=== PATIENT | female | born 1960 | race Caucasian/White ===

== ENCOUNTER 2023-09-25 12:15 | Emergency (ER) | payer MEDICAID ==
[~2023-09-25] VITALS: Ht 177.8 cm; Wt 75.2 kg
[~2023-09-25 12:15] MED LIST: ALLEGRA-D 24 H1 EACH PO; APPLE CIDER VI300 MG PO; B COMPLETE1 EACH PO; CYMBALTA60 MG PO; FLAX SEED OIL1000 MG PO; GABAPENTIN300 MG PO; IRON325 M1 PO; L-METHYLFOLATE15 M1 PO; MELOXICAM15 MG PO; MOTRIN IB200 MG PO; NEXIUM40 MG PO; NORCO 5-325 TA1 EACH PO; OMEGA 3 1,0001 EACH PO; PERCOCET 5-3251 EACH PO; SERTRALINE HCL50 MG PO; SUPERVITE EC CAP1 MG; VENLAFAXINE HC100 MG PO
[2023-09-25 12:36] LABS: BILIRUBIN, URINE NEGATIVE (negative); BLOOD/HGB, URINE NEGATIVE (Negative); KETONE, URINE NEGATIVE (Negative); LEUK ESTERASE, URINE MODERATE (negative); NITRITE, URINE POSITIVE (negative); PH, URINE 7.5 (5-7)
[2023-09-25 12:41] LABS: EPITHELIAL CELLS, URINE SQUAMOUS 2+ /lpf (0-1+)
[2023-09-25 12:42] LABS: BACTERIA, URINE 2+ /hpf (negative); CASTS, URINE NONE SEEN \\lpf; COLLECTION TYPE, URINE CLEAN CATCH; CRYSTALS, URINE NONE SEEN (0-1+); RED BLOOD CELLS, URINE 0-1 /hpf (0-5); REFLEX CULTURE, URINE No (No); WHITE BLOOD CELLS, URINE 41-50 /HPF (0-5)
[2023-09-25] MEDS ORDERED: CEPHALEXIN500 MG PO (12:54)
[2023-09-25 13:06] VITALS: BP 116/69
== END 2023-09-25 13:07 | disposition home or self-care (01) ==
LOC: ED 12:15
PROVIDERS: Emergency Medicine
DX: N39.0 Urinary tract infection, site not specified (principal); K21.9 Gastro-esophageal reflux disease without esophagitis; Z79.899 Other long term (current) drug therapy; Z88.2 Allergy status to sulfonamides; Z88.5 Allergy status to narcotic agent
CPT/HCPCS: 81001; 99283

== ENCOUNTER 2024-04-28 05:38 | Emergency (ER) | payer MEDICARE, OTHER ==
[~2024-04-28] VITALS: Ht 177.8 cm; Wt 68.5 kg
[~2024-04-28 05:38] MED LIST changes: +CEPHALEXIN500 MG PO
[2024-04-28] MEDS ORDERED: OMEPRAZOLE20 MG PO (05:50)
[2024-04-28] MEDS ORDERED: ondansetron HCL 4 MG/2 ML VIAL IV ONE (06:00)
[2024-04-28] MEDS ORDERED: HYDROmorphone HCL 1 MG/ML SYR IV PRN (06:00)
[2024-04-28] MEDS ORDERED: TRAMADOL HCL50 MG PO (07:57)
[2024-04-28] MEDS ORDERED: TRAMADOL HCL 50 MG TAB PO ONE (08:15)
[2024-04-28] MEDS ORDERED: ACETAMINOPHEN 500 MG TAB PO ONE (08:15)
[2024-04-28 08:28] VITALS: BP 120/75
== END 2024-04-28 08:28 | disposition home or self-care (01) ==
LOC: ED 05:38
DX: S52.612A Displaced fracture of left ulna styloid process, initial encounter for closed fracture (principal); S52.572A Other intraarticular fracture of lower end of left radius, initial encounter for closed fracture; S00.12XA Contusion of left eyelid and periocular area, initial encounter; K21.9 Gastro-esophageal reflux disease without esophagitis; Z88.2 Allergy status to sulfonamides; Z88.5 Allergy status to narcotic agent; Z79.899 Other long term (current) drug therapy; W10.9XXA Fall (on) (from) unspecified stairs and steps, initial encounter
CPT/HCPCS: 29125; 70450; 70486; 71046; 72125; 73110; 73130; 99284-25; A9270; J1171; J2405

== ENCOUNTER 2024-12-22 21:04 | Emergency (ER) | payer MEDICARE, OTHER ==
[~2024-12-22] VITALS: Ht 177.8 cm; Wt 64.0 kg
[~2024-12-22 21:04] MED LIST changes: +OMEPRAZOLE20 MG PO; +TRAMADOL HCL50 MG PO
[2024-12-22] MEDS ORDERED: TRAMADOL HCL 50 MG TAB PO ONE (21:30)
[2024-12-22] MEDS ORDERED: ACETAMINOPHEN 500 MG TAB PO ONE (21:30)
[2024-12-22] MEDS ORDERED: TRAMADOL HCL50 MG PO (21:54)
[2024-12-22] MEDS ORDERED: TRAMADOL HCL 50 MG HOME.PACK PO ONE (22:00)
[2024-12-22 22:37] VITALS: BP 148/83
== END 2024-12-22 22:30 | disposition home or self-care (01) ==
LOC: ED 21:04
DX: S52.592A Other fractures of lower end of left radius, initial encounter for closed fracture (principal); S52.615A Nondisplaced fracture of left ulna styloid process, initial encounter for closed fracture; K21.9 Gastro-esophageal reflux disease without esophagitis; Z88.2 Allergy status to sulfonamides; Z88.5 Allergy status to narcotic agent; Z79.899 Other long term (current) drug therapy; W18.30XA Fall on same level, unspecified, initial encounter
CPT/HCPCS: 73110; 99283; A9270

== ENCOUNTER 2025-01-03 11:01 | Day surgery (SDC) | payer OTHER, MEDICARE ==
[~2025-01-03] VITALS: Ht 177.8 cm; Wt 61.3 kg
[~2025-01-03 11:01] MED LIST changes: +CEFAZOLIN SODIUM 2 GM in SODIUM CHLORIDE 0.9% 100 ML IV SCH; +IBLOOD GLUCOSE TEST STRIP 1 EA TEST VI PRN; +LACTATED RINGER'S 1,000 ML IV SCH; +LIDOCAINE HCL 1% 5 ML SDV INJ ONE
[2025-01-03] MEDS ORDERED: DEXAMETHASONE SOD PHOS 10 MG/ML VIAL ONE (11:11)
[2025-01-03] MEDS ORDERED: LIDOCAINE HCL 2% 5 ML SDV ONE ×2 (11:15→11:56)
[2025-01-03] MEDS ORDERED: SEVOFLURANE 250 ML BTL INH ONE (11:20)
[2025-01-03 11:26] VITALS: BP 130/72
[2025-01-03 11:42] LABS: BASOPHILS 0.9 % (0.1-1.2); EOSINOPHILS 2.0 % (0.7-5.8); LYMPHOCYTES 25.6 % (19.3-51.7); MCH 34.7 PG (25.6-32.2); MCHC 35.1 g/dL (32.2-35.5); MCV 98.9 fL (79.4-94.8); MONOCYTES 10.3 % (4.7-12.5); NEUTROPHILS 61.0 % (34.0-71.1); RBC 4.35 M/uL (3.93-5.22)
[2025-01-03] MEDS ORDERED: OXYCODONE HCL5 M3 PO (11:56)
[2025-01-03] MEDS ORDERED: MULTIVITAMIN1 EACH PO (11:57)
[2025-01-03] MEDS ORDERED: VITAMIN C500 M1 PO (11:57)
[2025-01-03] MEDS ORDERED: VITAMIN B121000 MCG PO (11:57)
[2025-01-03] MEDS ORDERED: TURMERIC500 M3 PO (11:58)
[2025-01-03] MEDS ORDERED: OMEGA 3 FISH O1 EACH PO (11:58)
[2025-01-03 12:01] LABS: ALT (SGPT) 25.0 U/L (14-59); AST (SGOT) 22.0 U/L (15-37); GLOMERULAR FILTRATION RATE,EST 102.0 mL/min (>60); PROTEIN, TOTAL 7.4 g/dL (6.4-8.2); UREA NITROGEN 12.0 mg/dL (7-18)
[2025-01-03] MEDS ORDERED: ACETAMINOPHEN 1,000 MG/100 ML VIAL ONE (12:55)
[2025-01-03] MEDS ORDERED: KETOROLAC TROMETHAMINE 30 MG/ML VIAL ONE (13:03)
[2025-01-03] MEDS ORDERED: fentaNYL citrate 100 MCG/2 ML VIAL ONE (13:03)
[2025-01-03] MEDS ORDERED: Ropivacaine HCl 0.5% 30 ML VIAL ONE (13:05)
[2025-01-03] MEDS ORDERED: SODIUM CHLORIDE 0.9% 20 ML IV ONE (13:05)
[2025-01-03] MEDS ORDERED: HYDROCODONE/ACETA 7.5/325 TAB PO PRN (13:30)
[2025-01-03] MEDS ORDERED: HYDROCODON-ACE1 EA11 PO (13:31)
[2025-01-03] MEDS ORDERED: LACTATED RINGER'S 1,000 ML IV ONE (13:33)
--- NOTE | 2025-01-03 13:41 | NUR ---
01/03/25 1341 Marie Forde 1336: PT ARRIVES TO PACU AWAKE, BUT DROWSY. REPORT RECEIVED FROM [employer] REPORT ANALYST AND [employer]TERY [employer]GER CONVEYOR LINE.
[2025-01-03 14:20] VITALS: BP 134/78
--- NOTE | 2025-01-03 14:52 | NUR ---
1420: PATIENT BACK IN DAY SURGERY ROOM FROM PACU. RATES PAIN 8/10 IN LEFT WRIST. VS CHECKED. IV SITE WNL. SCDs ON. LEFT WRIST ELEVATED ON PILLOWS. ICE PACK TO LEFT WRIST. LEFT FINGERS WARM. CAP REFILL LESS THAN 3 SECONDS TO LEFT FINGERS. LEFT FINGERS PINK. UNABLE TO ASSESS LEFT RADIAL PULSE. GIVEN ICE WATER AND CRACKERS. FRIEND AT BEDSIDE. CALL LIGHT WITHIN REACH. 1435: PATIENT TOLERATING WATER AND CRACKERS. GIVEN NORCO FOR PAIN. CALL LIGHT WITHIN REACH.
--- NOTE | 2025-01-03 15:15 | NUR ---
1500: CHECKED PATIENT. PATIENT STATES DOING WELL. NO NEEDS AT THIS TIME. FRIEND LEFT TO GO FILLING [employer]IC PRESCRIPTION. CALL LIGHT WITHIN REACH.
[2025-01-03 15:27] VITALS: BP 114/62
--- NOTE | 2025-01-03 15:31 | NUR ---
VS CHECKED. PATIENT STATES PAIN IMPROVING. CAP REFILL TO LEFT FINGERS WNL. LEFT FINGERS WARM AND PINK. PATIENT WATCHING MOVIE ON PHONE. SCDs ON. IV SITE WNL. CALL LIGHT WITHIN REACH.
[2025-01-03 17:05] VITALS: BP 112/70
--- NOTE | 2025-01-03 17:11 | NUR ---
1620: PATIENT ASSISTED OOB AND TO BATHROOM. VOID WITHOUT DIFFICULTY. GAIT STEADY TO AND FROM BATHROOM. PATIENT ASSISTED TO GET DRESSED. LEFT ARM IN SLING. 1700: DISCHARGE INSTRUCTIONS GIVEN TO PATIENT AND FRIEND.
--- NOTE | 2025-01-03 17:23 | NUR ---
1710: IV DC'D WNL. TIP INTACT. DRESSING APPLIED. VS CHECKED. LEFT FINGERS NUMB. LEFT FINGERS PINK AND WARM. CAP REFILL TO LEFT FINGERS WNL. PATIENT DISCHARGED TO HOME WITH FRIEND VIA WHEELCHAIR.
--- NOTE | 2025-01-07 06:46 | OR ---
[facility] [address], [place] [address] Signed DATE OF OPERATION: 01/03/2025 SURGEON: Janice Joshua MD PREOPERATIVE DIAGNOSIS: Displaced left distal radius fracture. POSTOPERATIVE DIAGNOSIS: Displaced left distal radius fracture. PROCEDURE PERFORMED: Open reduction and internal fixation of left distal radius. CIRCUIT COURT MAGISTRATE: Lexie George PA-C. Lexie was present and critical for all portions of the procedure. ANESTHESIA: General. TOURNIQUET TIME: 41 minutes. IMPLANTS: Tiara DVR 3.0 plate with eight screws. BRIEF HISTORY: Johana is a 64-year-old female with a history of a ground level fall fracturing her distal radius. This is the same wrist that she broke about six months ago that healed uneventfully without surgical intervention. However, this was displaced and angulated. The risks and benefits of operative treatment were discussed with her and she elected to proceed. DESCRIPTION OF PROCEDURE: Once consent was obtained, she was taken to the operating room. After adequate anesthesia, she was placed on the OR table with a hand table. The arm was prepped and draped in a standard sterile fashion up to a well-padded proximal arm tourniquet. The arm was then exsanguinated using Esmarch bandage and tourniquet inflated to 200 mmHg. Standard volar approach along the FCR was taken through skin and subcutaneous tissue. The FCR was identified, retracted, and protected. The floor of the FCR sheath was then Electronically Signed By: JANICE JOSHUA MD 01/07/25 0646 PATIENT NAME: JOHANA SCHMID OPERATIVE REPORT DATE OF : 56 REPORT #: [id number] PHYSICIAN: JANICE JOSHUA MD PCP: KENDRA HOWARD PAC REPORT IS CONFIDENTIAL AND NOT TO BE RELEASED WITHOUT AUTHORIZATION [facility] [address], [place] [address] Signed opened and the pronator was split and elevated off the volar distal radius. The fracture was identified and reduced with some difficulty. It was then held in place with a single K-wire. The plate was then fashioned to fit the center of the distal radius and a single screw was placed proximally in the slotted position to allow movement of the plate up and down. The plate was then centered in the lateral view and four screws were placed in the distal end of the plate, bringing the distal radius down into good contact and good alignment. A final screw was placed in the proximal end of the plate. The final radiograph showed good reduction and good plate placement and screw lengths. The wound was copiously irrigated with antibiotic solution. The pronator was then repaired back over the plate with 2-0 Monocryl. The floor of the FCR sheath was repaired and the subcutaneous tissue with 2-0 Monocryl. The skin was closed with 3-0 Stratafix and LiquiBand. It was dressed with an Allevyn and sterile gauze and a radial gutter splint. She tolerated the procedure well. All sponge, needle, and instrument counts were correct. Janice Joshua MD BA/MODL /[id number] Copies: ~ Electronically Signed By: JANICE JOSHUA MD 01/07/25 0646 PATIENT NAME: JOHANA SCHMID OPERATIVE REPORT DATE OF : 56 REPORT #: [id number] PHYSICIAN: JANICE JOSHUA MD PCP: KENDRA HOWARD PAC REPORT IS CONFIDENTIAL AND NOT TO BE RELEASED WITHOUT AUTHORIZATION
== END 2025-01-03 17:10 | disposition home or self-care (01) ==
LOC: DS 11:01
PROVIDERS: Nurse Anesthetist, Certified Registered; ATTEND Specialist
PROC: 0PSJ04Z Reposition Left Radius with Internal Fixation Device, Open Approach (ICD-10-PCS; principal; 2025-01-03 14:45)
DX: S52.532A Colles' fracture of left radius, initial encounter for closed fracture (principal); W01.0XXA Fall on same level from slipping, tripping and stumbling without subsequent striking against object, initial encounter; G89.18 Other acute postprocedural pain; Z88.8 Allergy status to other drugs, medicaments and biological substances; Z88.2 Allergy status to sulfonamides; Z79.899 Other long term (current) drug therapy
CPT/HCPCS: 01830; 36415; 64417; 73100; 80053; 85025; A9270; C1713; J0131; J0688; J1100; J1885; J2003; J2405; J2704; J2795; J3010; J7121